=== PATIENT | female | born 1945 | race Caucasian/White ===

== ENCOUNTER → 2021-01-10 10:09 | Outpatient (CLI) | payer MEDICARE, SELFPAY ==
--- NOTE | ~2021-01-10 | MM_ITS ---
EXAMINATION: MM screening [facility] BI w jayda HISTORY: Screening mammogram TECHNIQUE: Craniocaudal and mediolateral oblique 3-D tomosynthesis images were obtained and synthetic 2-D images were generated. CAD analysis was submitted and interpreted. COMPARISON: 03/19/2019, 01/15/2018, 12/17/2016 BREAST PARENCHYMAL COMPOSITION: There are scattered areas of fibroglandular density. FINDINGS: There is chronic, stable focal asymmetry in the upper inner quadrant of the left breast. Th ere is no evidence of suspicious mass, calcification, or architectural distortion to suggest malignan cy in either breast. There has been no suspicious interval change. IMPRESSION: 1. No mammographic evidence of malignancy. 2. Recommend routine screening mammography in one year. BI-RADS Category 2: Benign finding(s). Reviewed, dictated and finalized at location D.
== END ==
PROVIDERS: Visit Provider Obstetrics & Gynecology
DX: Z12.31 Encounter for screening mammogram for malignant neoplasm of breast (principal)
CPT/HCPCS: 77063; 77067

== ENCOUNTER → 2022-11-13 10:10 | Outpatient (CLI) | payer MEDICARE, OTHER, SELFPAY ==
--- NOTE | ~2022-11-13 | MM_ITS ---
EXAMINATION: MM screening glo BI w jayda HISTORY: Screening mammogram TECHNIQUE: Craniocaudal and mediolateral oblique 3-D tomosynthesis images were obtained and synthetic 2-D images were generated. CAD analysis was submitted and interpreted. COMPARISON: 01/10/2021, 03/19/2019, 01/15/2018 bilateral screening mammogram examinations BREAST PARENCHYMAL COMPOSITION: There are scattered areas of fibroglandular density. FINDINGS: There is stable bilateral thyroidal asymmetry, very possibly due to history of bilateral ex cisional biopsies. Scattered bilateral benign calcifications. There is no evidence of suspicious mass , calcification, or architectural distortion to suggest malignancy in either breast. There has been n o suspicious interval change. IMPRESSION: 1. No mammographic evidence of malignancy. 2. Recommend routine screening mammography in one year. BI-RADS Category 2: Benign finding(s). Reviewed, dictated and finalized at location A. TION COORDINATOR
== END ==
PROVIDERS: PCP Nurse Practitioner; Visit Provider Nurse Practitioner
DX: Z12.31 Encounter for screening mammogram for malignant neoplasm of breast (principal)
CPT/HCPCS: 77063; 77067

== ENCOUNTER → 2022-11-13 10:14 | Outpatient (CLI) | payer OTHER, SELFPAY ==
--- NOTE | ~2022-11-13 | DEXA_ITS ---
Bone Density Report Name: TONEY SAHNI Age: 77 Sex: Female Ethnicity: White Date of : 1945 Indication: postmenopausal; screening for osteoporosis; height loss; Referring Provider: Kristen Butcher Study: Bone densitometry was performed. Exam Date: November 13, 2022 Accession number: [id number] Bone Density: Region BMD T-score Z-score Classification AP Spine (L2, L3, L4) 1.122 0.4 2.9 Normal Femoral Neck (Left) 0.764 -0.8 1.3 Normal Total Hip (Left) 0.806 -1.1 0.7 Osteopenia Femoral Neck (Right) 0.743 -1.0 1.1 Normal Total Hip (Right) 0.823 -1.0 0.8 Normal Total Hip Mean 0.815 -1.1 0.8 Osteopenia World Health Organization criteria for BMD impression classify patients as: Normal (T-score at or above -1.0), Osteopenia (T-score between -1.0 and -2.5), or Osteoporosis (T-score at or below -2.5). 10-year Fracture Risk(1): Major Osteoporotic Fracture 8.5% Hip Fracture 1.2% Reported Risk Factors: [place] (), Neck BMD=0.743, BMI=41.5 Input outside FRAX(R) limits. Adjusted to:Qaykin=315 kg (1) FRAX(R) Version 3.08. Fracture probability calculated for an untreated patient. Fracture probability may be lower if the patient has received treatment. Previous Exams: Region Exam Age BMD T-score BMD Change BMD Change Date g/cm2 vs Baseline vs Previous AP Spine(L2, L3, L4) 11/13/2022 77 1.122 0.4 0.008 0.008 10/24/2014 69 1.113 0.3 Total Hip(Left) 11/13/2022 77 0.806 -1.1 -0.084* -0.084* 10/24/2014 69 0.890 -0.4 Total Hip(Right) 11/13/2022 77 0.823 -1.0 -0.066* -0.066* 10/24/2014 69 0.889 -0.4 *Denotes significance at 95% confidence level, LSC for AP Spine = 0.022 g/cm2, LSC for Total Hip = 0.027 g/cm2 Clinical Information Provided by Patient: Has used the following medications: Vitamin D Patient maximum height was 71 Menopause Age: 57 No regular weight bearing exercise Drinks caffeinated beverages Onset of menses at age 13 Number of children 0 Impression: The patient has low bone mass, based on the Left Total Hip T-score. The patient has an estimated ten-year risk of hip fracture of 1.2% and an estimated ten-year risk of major fracture of 8.5%, based on the WHO FRAX algorithm. The BMD for the Total Hip(Left) decreased, changing by -0.084 since the last DXA exam. The BMD for the Total Hip(Right) decreased, changing by -0.066 since the last DXA exam.
== END ==
PROVIDERS: PCP Nurse Practitioner; Visit Provider Nurse Practitioner
DX: Z78.0 Asymptomatic menopausal state (principal); M85.852 Other specified disorders of bone density and structure, left thigh; M85.851 Other specified disorders of bone density and structure, right thigh
CPT/HCPCS: 77080

== ENCOUNTER 2023-03-17 13:20 | Outpatient (CLI) | payer MEDICARE, SELFPAY ==
[2023-03-17 15:57] LABS: Basophils Absolute Auto 0.1 K/mm3 (0.0-0.1); Basophils Percent Auto 0.8 % (0.2-1.2); Eosinophils Absolute Auto 0.3 K/mm3 (0-0.3); Eosinophils Percent Auto 4.3 % (0-4.4); Hematocrit 41.1 % (37.0-47.0); Hemoglobin 13.6 g/dL (12.0-15.0); Immature Granulocyte Absolute 0.03 K/mm3 (0.00-0.031); Immature Granulocyte Percent A 0.4 % (0-0.5); Lymphocytes Absolute Auto 2.91 K/mm3 (0.9-3.2); Lymphocytes Percent Auto 36.9 % (18.3-44.2); Mean Corpuscular HGB Conc 33.1 g/dl (32-36); Mean Corpuscular Hemoglobin 31.9 pg (26-34); Mean Corpuscular Volume 96.3 fl (80-100); Mean Platelet Volume 9.8 fl (7.4-10.4); Monocytes Absolute Auto 0.6 K/mm3 (0.1-0.6); Neutrophils Percent Auto 50.6 % (45.5-73.1); Platelet Count Result 195 k/mm3 (150-375); Red Blood Count 4.27 M/mm3 (4.2-5.4); Red Cell Distribution Width 12.6 % (11.5-14.5); White Blood Count 7.9 K/mm3 (4.5-10.0)
[2023-03-17 18:06] LABS: Hemoglobin A1C 8.4 % (<5.7)
[2023-03-17 19:38] LABS: Vitamin D 25 Hydroxy 84.6 ng/mL
[2023-03-17 20:00] LABS: Alanine Aminotransferase 22 U/L (6-35); Albumin Level 3.8 g/dL (3.5-5.1); Alkaline Phosphatase 96 U/L (38-126); Anion Gap 2 mmol/L (8-16); Aspartate Amino Transferase 34 U/L (14-36); Bilirubin,Total 0.8 mg/dL (0.2-1.3); Blood Urea Nitrogen 16 mg/dL (7-17); Calcium 10.1 mg/dL (8.4-10.2); Carbon Dioxide 31 mmol/L (22-30); Chloride 105 mmol/L (98-107); Cholesterol 180 mg/dL (0-200); Estimated Glomerular Filt Rate > 60; Glucose 177 mg/dL (65-110); HDL Direct 63 mg/dL; Sodium 138 mmol/L (137-145); Triglycerides 143 mg/dL (<150)
[2023-03-17 20:06] LABS: LDL Cholesterol Direct 92 mg/dL
== END 2023-03-17 13:21 | disposition home or self-care (01) ==
LOC: ANHGOSHLAB 13:21
PROVIDERS: PCP Nurse Practitioner; Visit Provider Nurse Practitioner
DX: E11.9 Type 2 diabetes mellitus without complications (principal); E55.9 Vitamin D deficiency, unspecified; E78.5 Hyperlipidemia, unspecified
CPT/HCPCS: 36415; 80053; 80061; 82306; 83036; 85025

== ENCOUNTER 2023-08-05 10:57 | Outpatient (CLI) | payer MEDICARE, SELFPAY ==
[2023-08-05 18:27] LABS: Basophils Absolute Auto 0.1 K/mm3 (0.0-0.1); Basophils Percent Auto 0.6 % (0.2-1.2); Eosinophils Absolute Auto 0.2 K/mm3 (0-0.3); Eosinophils Percent Auto 1.8 % (0-4.4); Hematocrit 41.5 % (37.0-47.0); Immature Granulocyte Absolute 0.03 K/mm3 (0.00-0.031); Immature Granulocyte Percent A 0.4 % (0-0.5); Lymphocytes Absolute Auto 2.77 K/mm3 (0.9-3.2); Mean Corpuscular HGB Conc 31.3 g/dl (32-36); Mean Corpuscular Volume 98.8 fl (80-100); Mean Platelet Volume 10.4 fl (7.4-10.4); Monocytes Absolute Auto 0.6 K/mm3 (0.1-0.6); Monocytes Percent Auto 7.1 % (2.6-8.5); Neutrophils Absolute Auto 4.8 K/mm3 (1.3-6.7); Neutrophils Percent Auto 57.1 % (45.5-73.1); Platelet Count Result 226 k/mm3 (150-375); Red Cell Distribution Width 13.1 % (11.5-14.5); White Blood Count 8.4 K/mm3 (4.5-10.0)
[2023-08-05 18:31] LABS: Alanine Aminotransferase 21 U/L (6-35); Albumin Level 3.7 g/dL (3.5-5.1); Alkaline Phosphatase 97 U/L (38-126); Anion Gap 8 mmol/L (8-16); Aspartate Amino Transferase 51 U/L (14-36); Bilirubin,Total 0.6 mg/dL (0.2-1.3); Blood Urea Nitrogen 14 mg/dL (7-17); Carbon Dioxide 29 mmol/L (22-30); Chloride 104 mmol/L (98-107); Cholesterol 147 mg/dL (0-200); Estimated Glomerular Filt Rate > 60; Glucose 154 mg/dL (65-110); HDL Direct 55 mg/dL; Potassium 4.3 mmol/L (3.4-5.0); Sodium 141 mmol/L (137-145); Triglycerides 124 mg/dL (<150)
[2023-08-05 18:42] LABS: LDL Cholesterol Direct 72 mg/dL
[2023-08-05 19:02] LABS: Digoxin 0.5 ng/mL (0.8-2.0)
[2023-08-05 19:34] LABS: Hemoglobin A1C 7.9 % (<5.7)
[2023-08-05 19:49] LABS: Vitamin D 25 Hydroxy 88.4 ng/mL
== END 2023-08-05 10:58 | disposition home or self-care (01) ==
LOC: ANHGOSHLAB 10:59
PROVIDERS: Clinical Nurse Specialist; PCP Internal Medicine; Visit Provider Nurse Practitioner
DX: Z12.11 Encounter for screening for malignant neoplasm of colon (principal); Z12.12 Encounter for screening for malignant neoplasm of rectum; E11.9 Type 2 diabetes mellitus without complications; I10 Essential (primary) hypertension; E55.9 Vitamin D deficiency, unspecified; E78.5 Hyperlipidemia, unspecified; I48.91 Unspecified atrial fibrillation
CPT/HCPCS: 36415; 80053; 80061; 80162; 82306; 83036; 85025

== ENCOUNTER → 2023-11-13 09:38 | Outpatient (CLI) | payer MEDICARE, SELFPAY ==
--- NOTE | ~2023-11-13 | MM_ITS ---
EXAMINATION: MM screening glo BI w jayda HISTORY: Screening TECHNIQUE: Craniocaudal and mediolateral oblique 3-D tomosynthesis images were obtained and synthetic 2-D images were generated. CAD analysis was submitted and interpreted. COMPARISON: Comparison to multiple prior studies sequentially, with oldest reviewed study dated 01/15. BREAST PARENCHYMAL COMPOSITION: There are scattered areas of fibroglandular density. FINDINGS: Bilateral breast asymmetries are stable. There is no evidence of suspicious mass, calcifica tion, or architectural distortion to suggest malignancy in either breast. There has been no suspiciou s interval change. IMPRESSION: 1. No mammographic evidence of malignancy. 2. Recommend routine screening mammography in one year. BI-RADS Category 1: Negative Reviewed, dictated and finalized at location A. CLER
== END ==
PROVIDERS: PCP Obstetrics & Gynecology; Visit Provider Obstetrics & Gynecology
DX: Z12.31 Encounter for screening mammogram for malignant neoplasm of breast (principal)
CPT/HCPCS: 77063; 77067

== ENCOUNTER 2024-04-05 07:55 | Outpatient (CLI) | payer MEDICARE, SELFPAY ==
[2024-04-05 15:39] LABS: Alanine Aminotransferase 19 U/L (6-35); Alkaline Phosphatase 92 U/L (38-126); Anion Gap 11 mmol/L (4-12); Aspartate Amino Transferase 39 U/L (14-36); Bilirubin,Total 1.4 mg/dL (0.2-1.3); Blood Urea Nitrogen 16 mg/dL (7-17); Carbon Dioxide 27 mmol/L (22-30); Chloride 101 mmol/L (98-107); Estimated Glomerular Filt Rate > 60; Glucose 213 mg/dL (65-110); Potassium 4.2 mmol/L (3.4-5.0); Sodium 139 mmol/L (137-145)
[2024-04-06 08:57] LABS: Hemoglobin A1C 9.9 % (<5.7)
== END 2024-04-05 07:56 | disposition home or self-care (01) ==
LOC: ANHGOSHLAB 07:57
PROVIDERS: PCP Nurse Practitioner; Visit Provider Nurse Practitioner
DX: E11.9 Type 2 diabetes mellitus without complications (principal)
CPT/HCPCS: 36415; 80053; 83036

== ENCOUNTER 2024-08-30 09:36 | Outpatient (CLI) | payer MEDICARE, SELFPAY ==
[2024-08-30 19:42] LABS: Basophils Absolute Auto 0.1 K/mm3 (0.0-0.1); Basophils Percent Auto 0.8 % (0.2-1.2); Eosinophils Absolute Auto 0.2 K/mm3 (0-0.3); Eosinophils Percent Auto 2.4 % (0-4.4); Hematocrit 41.1 % (37.0-47.0); Hemoglobin 13.9 g/dL (12.0-15.0); Immature Granulocyte Absolute 0.02 K/mm3 (0.00-0.031); Immature Granulocyte Percent A 0.3 % (0-0.5); Lymphocytes Absolute Auto 2.11 K/mm3 (0.9-3.2); Lymphocytes Percent Auto 34.4 % (18.3-44.2); Mean Corpuscular HGB Conc 33.8 g/dl (32-36); Mean Corpuscular Hemoglobin 32.6 pg (26-34); Mean Corpuscular Volume 96.5 fl (80-100); Mean Platelet Volume 10.3 fl (7.4-10.4); Monocytes Absolute Auto 0.4 K/mm3 (0.1-0.6); Monocytes Percent Auto 7.2 % (2.6-8.5); Neutrophils Absolute Auto 3.4 K/mm3 (1.3-6.7); Neutrophils Percent Auto 54.9 % (45.5-73.1); Platelet Count Result 177 k/mm3 (150-375); Red Blood Count 4.26 M/mm3 (4.2-5.4); Red Cell Distribution Width 12.8 % (11.5-14.5); White Blood Count 6.1 K/mm3 (4.5-10.0)
[2024-08-30 20:05] LABS: Alanine Aminotransferase 14 U/L (6-35); Albumin Level 3.6 g/dL (3.5-5.1); Alkaline Phosphatase 93 U/L (38-126); Anion Gap 2 mmol/L (4-12); Aspartate Amino Transferase 33 U/L (14-36); Bilirubin,Total 1.1 mg/dL (0.2-1.3); Blood Urea Nitrogen 14 mg/dL (7-17); Calcium 9.9 mg/dL (8.4-10.2); Carbon Dioxide 31 mmol/L (22-30); Chloride 106 mmol/L (98-107); Cholesterol 164 mg/dL (0-200); Estimated Glomerular Filt Rate > 60; Glucose 184 mg/dL (65-110); HDL Direct 63 mg/dL; Potassium 4.4 mmol/L (3.4-5.0); Sodium 139 mmol/L (137-145); Triglycerides 105 mg/dL (<150)
[2024-08-30 20:16] LABS: Hemoglobin A1C 8.1 % (<5.7)
[2024-08-30 20:17] LABS: LDL Cholesterol Direct 74 mg/dL
[2024-08-30 20:42] LABS: Microalbumin Urine Random 39.2 mg/L (0-16.7)
[2024-08-30 20:46] LABS: Digoxin < 0.5 ng/mL (0.8-2.0)
[2024-08-30 20:51] LABS: Creatinine Urine 114.3 mg/dL; MALB Creatinine Ratio 34.3 mg/g (0-30)
== END 2024-08-30 09:37 | disposition home or self-care (01) ==
LOC: ANHGOSHLAB 09:37
PROVIDERS: PCP Nurse Practitioner; Visit Provider Nurse Practitioner
DX: I48.91 Unspecified atrial fibrillation (principal); E55.9 Vitamin D deficiency, unspecified; E78.5 Hyperlipidemia, unspecified; E11.9 Type 2 diabetes mellitus without complications; R78.89 Finding of other specified substances, not normally found in blood
CPT/HCPCS: 36415; 80053; 80061; 80162; 82043; 82306; 83036; 85025

== ENCOUNTER 2025-04-19 09:06 | Outpatient (CLI) | payer MEDICARE, SELFPAY ==
[2025-04-19 13:03] LABS: Anion Gap 5 mmol/L (4-12); Blood Urea Nitrogen 13 mg/dL (7-17); Calcium 10.2 mg/dL (8.4-10.2); Carbon Dioxide 28 mmol/L (22-30); Chloride 102 mmol/L (98-107); Estimated Glomerular Filt Rate > 60; Glucose 230 mg/dL (65-110); Potassium 4.4 mmol/L (3.4-5.0); Sodium 135 mmol/L (137-145)
[2025-04-19 17:14] LABS: Hemoglobin A1C 9.1 % (<5.7)
== END 2025-04-19 09:07 | disposition home or self-care (01) ==
LOC: ANHGOSHLAB 09:07
PROVIDERS: PCP Internal Medicine; Visit Provider Nurse Practitioner
DX: E11.9 Type 2 diabetes mellitus without complications (principal)
CPT/HCPCS: 36415; 80048; 83036

== ENCOUNTER 2025-07-14 01:58 | Day surgery (SDC) | payer MEDICARE, SELFPAY ==
[2025-07-07 11:13] VITALS: BMI 40.4
--- NOTE | 2025-07-07 11:29 | PC.NURSE ---
[facility] has started construction of its new state of the art ER which will open Spring 2026. With this, we anticipate parking may be a challenge for some our surgical patients and families. Parking spaces are limited but are available for all Surgical, obstetrics, and ER patients sharing this lot. If you arrive and find you are having a hard time finding a parking space, please note that we understand the challenges, please drive around the hospital and park near Hospital Entrance 1. When you enter this entrance, you can ask a volunteer to direct or take you back to the surgical waiting area to check in. We appreciate everyone?s understanding of these expected challenges while we build for your future. Report to the Outpatient Waiting Room, entrance under the green pavilion located off [address], at time _0630_ on date _[id number]_. Planned Procedure Time: _0830_.? Time changes happen often and if your time is changed the preop area will call you the afternoon before. - You and your visitor will be asked to self-screen and do not enter if you have any COVID symptoms. Please call surgeon if you need to reschedule. - A mask is optional within the hospital at this time. Patients may have clear liquids (water, carbonated beverages, clear teas, apple juice) until 3 hours prior to surgery with a maximum of 20 ounces. - No food from midnight until time of surgery and no smoking, or chewing tobacco (or any form of nicotine). No chewing gum, candy or mints. Take only the following medications with a SIP of water on the morning of surgery: ____Metoprolol and Digoxin___ DO NOT STOP ANY OF YOUR OTHER PRESCRIPTION MEDICATIONS PRIOR TO SURGERY EXCEPT THE FOLLOWING Hold all vitamins and supplements for 3 days per anesthesiologist. Medications to discontinue per physician Patient told by Yuni Vasquez to hold Eliquis one day before surgery. Patient told to OK this with Dr. Figueredo. Date to take last dose Please no make-up, nail swedish, hairspray, perfume, deodorant, or body powder the day of surgery.? No jewelry (including any body piercings) or valuables the day of surgery, leave them at home.? Please take a shower or bath the night before, or the morning of, surgery with an antibacterial soap.? Wear comfortable, loose fitting clothing.? - Jewelry must be removed prior to entering the operating room.? Rings and piercings that are not removed may be cut off. - The hospital will not accept responsibility for valuables.? - Please leave all valuables, including medications, at home the day of surgery. If you are going home after surgery, a licensed jinrikisha driver must drive you home.? - NO public transportation without another adult if you receive anesthesia. - We recommend that an adult stay with you for 24 hours following discharge. - We also recommend that you do not drive, make important decision, drink alcoholic beverages, or take any drugs that were not prescribed by your health care provider for at least 24 hours after your discharge time. Follow any additional instructions given to you from your surgeon. Telephone instructions given to __Trina__and asked if any additional questions and then verbalized understanding. Patient advised to call surgeon office or pre surgery nurse liaison [phone] if any additional questions.
--- NOTE | 2025-07-13 02:54 | PM.IMHP ---
H&P: HPI History of Present Illness Date/Time: 07/13/25 02:54 79-year-old female presents for evaluation of vaginal spotting and ultrasound which showed thickened endometrium at 7mm. In 2015 underwent hysteroscopy polypectomy had no issues until recently. Has had no heavy bleeding or clotting but has had brownish discharge and some pinkish discharge as well. No pain discomfort. Chief Complaint: Postmenopausal bleeding Review of Systems Review of Systems: All systems reviewed & are unremarkable except as noted in HPI and below PMFSH Past Medical History Medical History Encounter for special screening examination for neoplasm of cervix Screening mammogram, encounter for Hypertension Vitamin D deficiency A-fib Chicken pox GERD (gastroesophageal reflux disease) Hyperlipidemia Mumps Obesity Type 2 diabetes mellitus Surgical History Surgical History H/O oral surgery History of hysteroscopy 10/13/14 hscope d&c/polypectomy--benign History of breast biopsy 1999 & 2001 benign History of cholecystectomy 09/05/09 Family History Family History Sibling Patient's brother is in good health Mother Family history of lung cancer Patient's mother is , Onset Age: 54 Father Family history of malignant neoplasm of esophagus Patient's father is , Onset Age: 78 Heart disease Grandparent Heart disease paternal grandfather Carcinoma of colon maternal grandfather Social History Social History Smoking status: Never smoker Alcohol intake: never Substance use: never Substance use type: does not use Do You Feel Safe in your Home?: Yes Lack of Transportation: No Lack of Food: Never True Current Housing: I Have Housing Concerned About Future Housing: No Difficulty Paying Gas/Electric Bills: No Difficulty Paying for Meds: No Currently Unemployed: No Education: Master's Degree or Higher Difficulty w/ Childcare or Family Care: No Living arrangements: alone Additional living arrangements comments: single Occupation/Education: retired Gender identity (if verbalized by the patient): Female Sexual Orientation (if Verbalized by the Patient): Straight or Heterosexual Spiritual care concerns: No Meds Home Medications and Allergies Home Medications ?Medication ?Instructions ?Recorded ?Confirmed ?Type cholecalciferol (vitamin D3) 125 125 mcg PO DAILY 05/01/20 07/07/25 History mcg (5,000 unit) capsule lancets (Accu-Chek Softclix #100 ea 08/08/20 07/07/25 Rx Lancets) blood sugar diagnostic (Accu-Chek #100 ea 09/08/20 07/07/25 Rx Doreen Plus test strips) apixaban 5 mg tablet (Eliquis) See Rx Instructions .Route 09/02/24 07/07/25 Rx .COMPLEX #180 tabs digoxin 125 mcg (0.125 mg) tablet See Rx Instructions .Route 09/02/24 07/07/25 Rx .COMPLEX #90 tabs losartan 25 mg tablet See Rx Instructions .Route 09/02/24 07/07/25 Rx .COMPLEX #90 tabs metformin 500 mg tablet 1,000 mg (2 x 500 mg) PO BID #360 09/02/24 07/07/25 Rx tabs metoprolol tartrate 25 mg tablet See Rx Instructions .Route 09/02/24 07/07/25 Rx .COMPLEX #180 tabs metoprolol tartrate 50 mg tablet See Rx Instructions .Route 09/02/24 07/07/25 Rx .COMPLEX #180 tabs simvastatin 10 mg tablet 10 mg PO DAILY #90 tabs 09/02/24 07/07/25 Rx Allergies Allergy/AdvReac Type Severity Reaction Status Date / Time Penicillins Allergy Unknown Hives Verified 07/07/25 11:08 Exam Resp: Effort & Inspection: normal respiratory effort Auscultation: clear to auscultation bilaterally Cardio: Rate: regular rate Rhythm: regular rhythm GI: Inspection: normal to inspection Auscultation: normal bowel sounds : External Female Exam: normal external appearance Speculum Exam - Vagina: normal appearance of the vagina and vagina atrophic Speculum Exam - Cervix: normal appearance of the cervix Bimanual exam- vagina & uterus: normal bimanual exam Bimanual Exam- Adnexa, other: normal adnexae Assessment and Plan Assessment and plan (1) Postmenopausal bleeding: Code(s): N95.0 - Postmenopausal bleeding Status: Acute (2) Endometrial thickening on ultrasound: Code(s): R93.89 - Abnormal findings on diagnostic imaging of other specified body structures Status: Acute Plan Proceed with hysteroscopy with curettings
--- OUTSIDE RECORDS SUMMARY | 2025-07-14 02:00 | XMS_ITS ---
Author Organization Unknown ENCOUNTERS Encounter Performer Location Date Diagnosis Diagnosis Status Outpatient [facility] [address] [place] [address] [id number] Outpatient [facility] [address] [place] [address] [id number] MARIA C Outpatient [facility] [address] [place] [address] [id number] MARIA C *Note: Encounters from your own facility or health system may be excluded. Allergies, Adverse Reactions, Alerts Allergen Type Severity Identification Date Penicillins drug allergy 3 [id number] Medications Name Date Quantity Days Supplied [facility] Number
--- NOTE | 2025-07-14 08:33 | WPDHPUPDATE1 ---
History and Physical Update Update Date/Time: 07/14/25 08:33 History and Physical has been reviewed, including an updated exam of the patient. There are NO changes in the patient's condition. Risks, benefits, and alternatives have been discussed and questions answered. Patient agrees to proceed with procedure.
[2025-07-14] MEDS: ACETAMINOPHEN 500 MG TABLET 1000 MG PO (09:00)
[2025-07-14] MEDS: LACTATED RINGERS 1,000 ML 30 ML IV CONT (09:00)
[2025-07-14 09:05] LABS: Hematocrit 41.6 % (37.0-47.0); Hemoglobin 14.2 g/dL (12.0-15.0); Mean Corpuscular HGB Conc 34.1 g/dl (32-36); Mean Corpuscular Hemoglobin 31.7 pg (26-34); Mean Corpuscular Volume 92.9 fl (80-100); Platelet Count Result 207 k/mm3 (150-375); Red Blood Count 4.48 M/mm3 (4.2-5.4); White Blood Count 6.5 K/mm3 (4.5-10.0)
[2025-07-14 09:25] LABS: Anion Gap 7 mmol/L (4-12); Blood Urea Nitrogen 14 mg/dL (7-17); Calcium 10.1 mg/dL (8.4-10.2); Carbon Dioxide 26 mmol/L (22-30); Chloride 104 mmol/L (98-107); Estimated CRCL calculation 82 ml/min; Estimated Glomerular Filt Rate > 60; Glucose 265 mg/dL (65-110); Potassium 4.3 mmol/L (3.4-5.0); Sodium 137 mmol/L (137-145)
[2025-07-14 09:26] VITALS: BP 137/81; PULSE 82; TEMP 36.4; O2SAT 98; BMI 40.6
[2025-07-14 09:29] LABS: Digoxin 0.6 ng/mL (0.8-2.0)
--- NOTE | 2025-07-14 09:52 | P.PNAN_ITS ---
Anes - Initial Pre Proc Eval Procedure: Operation Date: 07/14/25 10:30 Proposed Procedures p Hysteroscopy Dilation and Curettage - Alexandre Figueredo MD Date/Time: 07/14/25 09:52 Surgeon: Alexandre Figueredo MD Pre Op Diagnosis: post menopausal bleeding Patient Data Age: 79 Gender: F Height: 1.78 m Weight: 128.6 kg Last Vital Signs Temp 97.5 F L 07/14/25 09:26 Pulse 82 07/14/25 09:26 BP 137/81 07/14/25 09:26 Pulse Ox 98 07/14/25 09:26 O2 Del Method Room Air 07/14/25 09:26 Allergies Allergy/AdvReac Type Severity Reaction Status Date / Time Penicillins Allergy Unknown Hives Verified 07/07/25 11:08 Home Medications ?Medication ?Instructions ?Recorded ?Confirmed ?Type cholecalciferol (vitamin D3) 125 125 mcg PO DAILY 04/2207/07/25 History mcg (5,000 unit) capsule lancets (Accu-Chek Softclix #100 ea 08/08/20 07/07/25 Rx Lancets) blood sugar diagnostic (Accu-Chek #100 ea 09/08/20 Rx Doreen Plus test strips) apixaban 5 mg tablet (Eliquis) See Rx Instructions .Ro tyrone 09/02/24 07/07/25 Rx .COMPLEX #180 tabs digoxin 125 mcg (0.125 mg) tablet See Rx Instructions .Route 09/02/24 07/14/25 Rx .COMPLEX #90 tabs losartan 25 mg tablet See Rx Instructions .Route 1 11/03/23 07/07/25 Rx .COMPLEX #90 tabs metformin 500 mg tablet 1,000 mg (2 x 500 mg) PO BID #360 09/02/24 07/07/25 Rx tabs metoprolol tartrate 25 mg tablet See Rx Instructions . Route 09/02/24 07/14/25 Rx .COMPLEX #180 tabs metoprolol tartrate 50 mg tablet See Rx Instructions . Route 09/02/24 07/14/25 Rx .COMPLEX #180 tabs simvastatin 10 mg tablet 10 mg PO DAILY #90 tabs 08/2207/07/25 Rx Laboratory Tests 07/14/25 08:56 WBC 6.5 K/mm3 (4.5-10.0) RBC 4.48 M/mm3 (4.2-5.4) Hgb 14.2 g/dL (12.0-15.0) Hct 41.6 % (37.0-47.0) MCV 92.9 fl (80-100) MCH 31.7 pg (26-34) MCHC 34.1 g/dl (32-36) RDW 12.5 % (11.5-14.5) Plt Count 207 k/mm3 (150-375) MPV 9.6 fl (7.4-10.4) Sodium 137 mmol/L (137-145) Potassium 4.3 mmol/L (3.4-5.0) Chloride 104 mmol/L (98-107) Carbon Dioxide 26 mmol/L (22-30) Anion Gap 7 mmol/L (4-12) BUN 14 mg/dL (7-17) Creatinine 0.72 mg/dL (0.7-1.0) Estim Creat Clear Calc 82 ml/min Estimated GFR > 60 (59 - ) Glucose 265 H mg/dL (65-110) Calcium 10.1 mg/dL (8.4-10.2) Digoxin 0.6 L ng/mL (0.8-2.0) Patient hx anesthesia problems: none Family hx anesthesia problems: none Results Review: All pre-operative results and documents have been reviewed as part of the pre- operative evaluation. [facility] Past Medical History Medical History Encounter for special screening examination for neoplasm of cervix Screening mammogram, encounter for Hypertension Vitamin D deficiency A-fib Chicken pox GERD (gastroesophageal reflux disease) Hyperlipidemia Mumps Obesity Type 2 diabetes mellitus Surgical History Surgical History H/O oral surgery History of hysteroscopy 10/13/14 hscope d&c/polypectomy--benign History of breast biopsy 1999 & 2001 benign History of cholecystectomy 09/05/09 Family History Family History Sibling Patient's brother is in good health Mother Family history of lung cancer Patient's mother is , Onset Age: 54 Father Family history of malignant neoplasm of esophagus Patient's father is , Onset Age: 78 Heart disease Grandparent Heart disease paternal grandfather Carcinoma of colon maternal grandfather Social History Social History Smoking status: Never smoker Alcohol intake: never Substance use: never Substance use type: does not use Do You Feel Safe in your Home?: Yes Lack of Transportation: No Lack of Food: Never True Current Housing: I Have Housing Concerned About Future Housing: No Difficulty Paying Gas/Electric Bills: No Difficulty Paying for Meds: No Currently Unemployed: No Education: Master's Degree or Higher Difficulty w/ Childcare or Family Care: No Living arrangements: alone Additional living arrangements comments: single Occupation/Education: retired Gender identity (if verbalized by the patient): Female Sexual Orientation (if Verbalized by the Patient): Straight or Heterosexual Spiritual care concerns: No Anes - Eval Final PreProcedure Day of Procedure 07/14/25 09:52 Patient weight: morbidly obese Heart: regular rate and rhythm Lungs: clear to auscultation Airway: Mallampati scale class III Neurological: alert and oriented Last oral intake: >/= 8 hours ASA classification: III Emergent: no Anesthetic plan: proceed Anesthesia type and monitoring: general GIVS and LMA and standard monitoring Results Review: All pre-operative results and documents have been reviewed as part of the pre- operative evaluation. Informed Consent: The patient's anesthetic plan and its attendant risks and benefits were discussed with the patient/family/POA. Questions were solicited and answers provided to the satisfaction of the patient/family/POA.
[2025-07-14] MEDS: LIDOCAINE 1% LOCAL INJ 10 ML VIAL INFILTRATE (10:15)
--- NOTE | 2025-07-14 10:20 | S_PTH ---
PATIENT: Trina Palmer LOC: [facility] U#:[id number] AGE/SX: 79/F ROOM: RE07/14/[address]: Alexandre Figueredo MD : 1945 BED: DIS: 07/14/2025 SPEC #: [id number] RECD: 07/14/25 11:18 STATUS: JASVIR REQ #: [id number] RASHAAD: 07/14/25 10:[address]: Alexandre Figueredo DEPT: [facility] Surgical RECD BY: Heaven Pollard ENTERED: 07/14/25 11:19 SP TYPE: Surgical OTHR DR: Manuel Doan DO Tissues: A - Endometrial Curettings Procedures: Hematoxylin and Eosin Stain Gross and Microscopic Level 4 P53 MLH1 MSH2 MSH6 PMS2
--- NOTE | 2025-07-14 10:22 | W.PM.PROC2 ---
Procedure Note - Detailed Date of Procedure 07/14/25 Pre-op Diagnosis post menopausal bleeding Post-op Diagnosis Same Procedure Performed Hysteroscopy with curettings Surgeon Alexandre Figueredo MD Anesthesia MAC Findings atrophic endometrium Description of Procedure patient prepped draped usual manner this procedure. Cervix dilated to allow the hysteroscope to be placed. Once this was done atrophic cavity was noted with no abnormalities. Curettings were obtained of the cavity with minimal tissue obtained. Patient was sent to the recovery room in stable condition. Estimated Blood Loss 10 Drains No Packing No Pathology Yes Complications No immediate complications Condition Stable Disposition PACU [facility] Billing Surgery - Charge Forward: Surgery Billing
[2025-07-14 10:30] VITALS: BP 176/81; PULSE 71; RESP 12; O2SAT 100
[2025-07-14 10:55] VITALS: BP 155/62; PULSE 66; RESP 14; O2SAT 98
[2025-07-14 11:25] VITALS: BP 151/83; PULSE 73; RESP 14
== END 2025-07-14 11:40 | disposition home or self-care (01) ==
PROVIDERS: Anesthesiology; PCP Internal Medicine; Visit Provider Obstetrics & Gynecology
PROC: 0U5B8ZZ Destruction of Endometrium, Via Natural or Artificial Opening Endoscopic (ICD-10-PCS; CPT 58563; principal; 2025-07-14 10:30)
DX: C54.1 Malignant neoplasm of endometrium (principal); N95.0 Postmenopausal bleeding; E11.9 Type 2 diabetes mellitus without complications; Z79.899 Other long term (current) drug therapy; E66.01 Morbid (severe) obesity due to excess calories; Z68.41 Body mass index [BMI] 40.0-44.9, adult
CPT/HCPCS: 58558; 36415; 80048; 80162; 82948; 85027; 88305; 88341; 88342; A9270; J2003; J2405; J2704; J3010; J7120

== ENCOUNTER 2025-08-29 09:19 | Outpatient (CLI) | payer MEDICARE, SELFPAY ==
--- NOTE | ~2025-08-29 | MM_ITS ---
EXAMINATION: MM screening glo BI w jayda HISTORY: Screening. TECHNIQUE: Craniocaudal and mediolateral oblique 3-D tomosynthesis images were obtained and synthetic 2-D images were generated. CAD analysis was submitted and interpreted. COMPARISON: 2023, 2022, and 2020 BREAST PARENCHYMAL COMPOSITION: Dense: The breasts are heterogeneously dense FINDINGS: No suspicious masses are seen. There are no suspicious calcifications. No unexplained architectural distortion is seen. There are no skin or nipple abnormalities identified. There is no adenopathy seen on the images submitted. IMPRESSION: No mammographic evidence to suggest malignancy is seen. The patient may return to screening mammography as per ACR guidelines. BI-RADS 1 - Negative. Reviewed, dictated and finalized at location C. SCHOOL LIBRARIAN
== END 2025-08-29 09:20 | disposition home or self-care (01) ==
LOC: MICIMG 09:23
PROVIDERS: PCP Internal Medicine; Visit Provider Obstetrics & Gynecology
DX: Z12.31 Encounter for screening mammogram for malignant neoplasm of breast (principal)
CPT/HCPCS: 77063; 77067

== ENCOUNTER 2025-09-12 08:42 | Outpatient (CLI) | payer MEDICARE, SELFPAY ==
--- NOTE | ~2025-09-12 | NM_ITS ---
EXAMINATION: NM toño stress w perfusion DATE: 09/12/2025 12:02 INDICATION: Unspecified atrial fibrillation TECHNIQUE: Rest images were obtained following intravenous administration of 10.7 mCi Tc99m tetrofosmin (Myoview). The patient was infused intravenously with Lexiscan (Regadenoson). Then, 32.3 mCi Tc99m tetrofosmin (Myoview) was administered intravenously, and stress images were obtained. Data was ilene nstructed into short axis and horizontal and vertical long axis SPECT images. Gated SPECT images were also obtained. COMPARISON: None. FINDINGS: There is no definite reversible or fixed perfusion abnormality to suggest ischemia or infarction. There is normal left ventricular chamber size, wall motion and ejection fraction. Left ventricular ejection fraction measures 69%. IMPRESSION: 1. Normal myocardial perfusion at rest and during stress. 2. Left ventricular ejection fraction measuring 69%. 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
--- NOTE | 2025-09-12 09:17 | EST_ITS ---
Patient Info Name: Trina Palmer Age: 80 years : 1945 Gender: Female Ht: 70 in Wt: 280 lbs BSA: 2.56 m2 HR: 85 bpm BP: 148 / 94 mmHg Exam Date: 09/12/2025 9:17 AM Patient Status: O Admit Date: 09/12/2025 Exam Type: CA stress toño w NM A regadenoson stress test was performed. Staff Referring Physician: Joselin Dent Attending Provider: Joselin Dent Exercise Technologist: Sabrina Allen Exercise Physician: Ron Tirado DO Summary 1. 1. Negative lexiscan stress test for ischemic ST changes by ECG criteria. 2. 2. Baseline hypertension. 3. 3. Nuclear scan to follow and will be reported separately. Please correlate with it. 4. 4. Patient informed of the above results. Protocol: Lexiscan Stress ECG Details Stage: REST Duration (min): 0 min : 24 sec HR (bpm): 81 SBP (mmHg): --- DBP (mmHg): --- Stage: REST Duration (min): 4 min : 22 sec HR (bpm): 88 SBP (mmHg): 148 DBP (mmHg): 94 Stage: STAGE 1 Duration (min): 1 min : 0 sec HR (bpm): 88 SBP (mmHg): 191 DBP (mmHg): 89 Stage: RECOVERY Duration (min): 1 min : 0 sec HR (bpm): 92 SBP (mmHg): 191 DBP (mmHg): 89 Stage: RECOVERY Duration (min): 2 min : 0 sec HR (bpm): 92 SBP (mmHg): 191 DBP (mmHg): 89 Stage: RECOVERY Duration (min): 3 min : 0 sec HR (bpm): 91 SBP (mmHg): 148 DBP (mmHg): 85 Stage: RECOVERY Duration (min): 3 min : 19 sec HR (bpm): 91 SBP (mmHg): 148 DBP (mmHg): 85 Rest HR: 88 bpm Peak HR: 92 bpm Rest Sys BP: 148 mmHg Peak Sys BP: 191 mmHg Max Pred HR: 142 bpm % Max Pred HR: 65 % Target HR: 121 bpm Max RPP: 17,572 bpm*mmHg Termination Reason: Completed protocol Cardiac Symptoms: Shortness of breath Total Time: 1 min : 0 sec Rest Mulligan BP: 94 mmHg Peak Mulligan BP: 89 mmHg Total Dose: 0.4 mg Resting ECG Atrial fibrillation. Stress ECG No ST changes. Arrhythmias No other arrhythmias. Report Signatures
--- OUTSIDE RECORDS SUMMARY | 2025-09-12 09:17 | XMS_ITS | Clinical Summary ---
Author Organization [facility] Address [address] [place] [id number] Care Team Providers Care Latcher Name Role Phone Manule Doan DO Primary Care Provider [phone] Allergies Active Allergy Reactions Criticality Noted Date Comments Penicillin G Hives,Rash Medium 08/17/2025 Medications apixaban (ELIQUIS) 5 mg tabletIndication s:atrial fibrillation Take 1 tablet (5 mg total) by mouth 2 (two) times a day Active metoprolol tartrate (LOPRESSOR) 25 mg immediate release tabletIndication s:Atrial Arrhythmia Take 2 tablets (50 mg total) by mouth 2 (two) times a day Active simvastatin (ZOCOR) 80 mg tablet Take 1 tablet (80 mg total) by mouth nightly Active losartan (COZAAR) 25 mg tabletIndication s:kidney Take 1 tablet (25 mg total) by mouth nightly Active cholecalciferol, vitamin D3, 5,000 unit/mL dropsIndications :Prevention of Vitamin D Deficiency Take 5,000 Int'l Units/1.7m2 by mouth every morning Active Accu-Chek Doreen Plus test strp strip USE TO TEST BLOOD SUGAR TWICE DAILY 5 Active Accu-Chek Softclix Lancets lancets USE TO CHECK BLOOD SUGAR EVERY MORNING FASTING AND 1 TO 2 HOURS AFTER EVENING MEAL 5 Active digoxin (LANOXIN) 125 mcg (0.125 mg) tabletIndication s:atrial fibrillation Take 1 tablet (125 mcg total) by mouth every morning 5 Active metFORMIN (GLUCOPHAGE) 500 mg tabletIndication s:type 2 diabetes mellitus Take 2 tablets (1,000 mg total) by mouth 2 (two) times a day with meals 5 Active metoprolol tartrate (LOPRESSOR) 50 mg immediate release tabletIndication s:Atrial Arrhythmia Take 1 tablet (50 mg total) by mouth 2 (two) times a day 5 Active simvastatin (ZOCOR) 20 mg tablet Take 1 tablet (20 mg total) by mouth nightly 5 Active digoxin (LANOXIN) 50 mcg/mL solution Take 2.5 mL (0.125 mg total) by mouth 09/02/20 25 Discontin ued(Dupli talia order) metFORMIN (FORTAMET) 500 mg 24 hr tablet Take 1 tablet (500 mg total) by mouth daily with breakfast 09/02/20 25 Discontin ued(Dupli talia order) Active Problems Problem Noted Date Diagnosed Date Endometrial cancer 08/17/2025 Encounters Date Type Department Care Team Description 09/02/2025 10:45 AM MYSQL DBA Clinical Support [facility] Medicine Obstetrics and Gynecology [facility] 7th [place] [address] 09/02/2025 9:00 AM MYSQL DBA Pre-Admission Testing [facility] for Preoperative Assessment and Planning [facility] [address] [place] [id number] Preoperative testing (Primary Dx); Endometrial cancer 09/02/2025 6:52 AM MYSQL DBA - 09/02/2025 11:59 PM MYSQL DBA Hospital Encounter [facility] Cardiac Diagnostic Lab [address] [place] [address] 8th [place] [address] Endometrial cancer Discharge Disposition: Discharge to home or self care 09/01/2025 Orders Only [facility] Medicine Pathology Outreach [address] [place] [address] Naima Vieira MD Carcinoma in situ of cervix, 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 Orders Only [facility] Medicine Obstetrics and Gynecology [address] [place] [address] [facility] 13th [place] [address] [place] [address] Naima Vieira MD Carcinoma in situ of cervix, unspecified location (Primary Dx) 08/23/2025 Orders Only [facility] Medicine Obstetrics and Gynecology [address] [facility] 13th [place] [address] [place] [address] Gill Lopez, RN Endometrial cancer (Primary Dx) 08/23/2025 Telephone [facility] [address] [facility] 13th [place] [address] [place] [address] Gill Lopez, PAULETTE 08/23/2025 Orders Only [facility] [address] [facility] 13th [place] [address] [place] [address] Gill Lopez RN 08/23/2025 Telephone [facility] [address] [facility] 13th [place] [address] [place] [address] Naima Vieira MD Surgery 08/17/2025 11:00 AM MYSQL DBA Ancillary Procedure [facility] at the [address] 8th [place] [address] [place] [address] Swelling of right lower extremity; Swelling of left lower extremity 08/17/2025 10:00 AM MYSQL DBA Office Visit [facility] [address] [facility] 13th [place] [address] Naima Vieira MD Endometrial cancer (Primary Dx) 08/17/2025 Documentation [facility] [address] [facility] 13th [place] [address] [place] [address] Noemi Pulido RN 08/17/2025 Orders Only [facility] [address] [facility] 13th [place] [address] [place] [address] Jocelyn Uribe, PAULETTE Swelling of right lower extremity (Primary Dx); Swelling of left lower extremity from Last 3 Months Surgical History Surgery Date Site/Laterality Comments EXCISION / CURRETTAGE OF BON E CYST / BENIGN TUMOR OF PROXIMAL HUMERUS W/ OR W/O BONE GRAFT 09/22/1994 - 09/21/1995 Left benign tumor lft breast EXCISION / CURRETTAGE OF BON E CYST / BENIGN TUMOR OF PROXIMAL HUMERUS W/ OR W/O BONE GRAFT 09/22/1999 - 09/21/2000 Right benign tumor of right breast CHOLECYSTECTOMY UMBILICAL HERNIA REPAIR 09/22/2008 - 09/21/2009 POLYPECTOMY 09/22/2011 - 09/21/2012 uterine wall ORAL SURGERY 09/22/2022 - 09/21/2023 ORAL SURGERY 09/22/2024 - 09/21/2025 DILATION AND CURETTAGE OF UTERUS DILATION AND CURETTAGE, DIAGNOSTIC / THERAPEUTIC 09/22/2024 - 09/21/2025 Medical History Medical History Date Comments Uterine cancer (HCC) STAGE 1 Heart palpitations Afib Diabetes type 2 Motion sickness Family History Medical History Relation Name Comments Non-Hodgkin's Lymphoma Brother Esophageal cancer Father Colon cancer Maternal Grandfather Lung cancer Mother brain tumor Mother No Known Problems Sister Anesthesia problems Neg Hx Relation Name Status Comments Brother Father Maternal Grandfather Mother Sister Social History Tobacco Use Types Packs/Day Years Used Date Smoking Tobacco: Never Passive Smoke Exposure: Never Smokeless Tobacco: Never Tobacco Cessation:Counseling Given: Not Answered Alcohol Use Standard Drinks/Week Comments Never 0 (1 standard drink = 0.6 oz pur e alcohol) AUDIT-C Answer Date Recorded Q1: How often do you have a drink containing alcohol? Never 09/02/2025 Q2: How many drinks containi ng alcohol do you have on a typical day when you are drinking? Patient does not drink Q3: How often do you have si x or more drinks on one occasion? Never 09/02/2025 Personal Safety Answer Date Recorded Have you ever been in or are you currently in a harmful physical or emotional relationship or is someone making you feel afraid or unsafe? Denies 09/02/2025 Comments Unknown Sex and Gender Information Value Date Recorded Sex Assigned at Not on file Legal Sex Female 1:01 AM MYSQL DBA Gender Identity Not on file Sexual Orientation Not on file Last Filed Vital Signs Vital Sign Reading Time Taken Comments Blood Pressure 147/83 09/02/2025 8:46 AM MYSQL DBA Pulse 85 09/02/2025 8:45 AM MYSQL DBA Temperature 36.4 C (97.5 F) 08/17/2025 9:45 AM MYSQL DBA Respiratory Rate 16 08/17/2025 9:45 AM MYSQL DBA Oxygen Saturation 100% 09/02/2025 8:45 AM MYSQL DBA Inhaled Oxygen Concentration - - Weight 127.7 kg (281 lb 8 oz) 08/17/2025 9:45 AM MYSQL DBA Height 177.8 cm (5' 10) 09/02/2025 8:45 AM MYSQL DBA Body Mass Index 40.85 08/17/2025 9:45 AM MYSQL DBA Plan of Treatment Upcoming Encounters Date Type Department Care Team (Latest Contact Info) Description 09/26/2025 11:50 AM MYSQL DBA Hospital Encounter [facility] Operating Room 1 [place] [address] Naima Vieira MD [address] [place] [address] 09/26/2025 11:50 AM MYSQL DBA Anesthesia Event [facility] Operating Room 1 [place] [id number] Whitney Dhillon, FOLDING MACHINE FEEDER [address] [place] [address] 09/26/2025 11:50 AM MYSQL DBA - 09/26/2025 2:55 PM MYSQL DBA Surgery [facility] Operating Room 1 [place] [address] Naima Vieira MD [address] [place] [address] XI HYSTERECTOMY - LAPAROSCOPIC ROBOTIC ASSISTED Scheduled Procedures Name Priority Associated Diagnoses Date/Ti me XI HYSTERECTOMY - LAPAROSCOP IC ROBOTIC ASSISTED Endometrial cancer 09/26/2025 11:50 AM MYSQL DBA XI SALPINGO/OOPHORECTOMY - LAPAROSCOPIC ROBOTIC ASSISTED Endometrial cancer 09/26/2025 11:50 AM MYSQL DBA XI ROBOTIC SENTINEL LYMPH NODE Endometrial cancer 09/26/2025 11:50 AM MYSQL DBA Health Maintenance Due Date Last Done Comments Depression Screening 1945 Hepatitis C Screening 1945 Osteoporosis Screening-Bone Density Scan 1945 DTaP/Tdap/Td Vaccine (1 - Tdap) 1958 Hepatitis B Screening 1965 Pneumococcal vaccine 65+ (1 of 1 - PCV) 1997 Zoster Vaccine (1 of 2) 1997 Well Visit 65+ 2012 Influenza Vaccine (#1) 2025 09/02/2024, 2021 Fall Risk Assessment 09/02/2026 09/02/2025 Goals Goal Patient Goal Type Associated Problems Recent Progress Patient-Stated? Author Autogenera janelle Goal Care Plan Autogenerated Problem No Peña, Whitney Worrell, [facility] Procedures Procedure Name Priority Date/Time Associated Diagnosis Comments EGFR Routine 09/02/2025 10:06 AM MYSQL DBA Endometrial cancer DIFFERENTIAL AUTO Routine 09/02/2025 10: 06 AM MYSQL DBA Endometrial cancer COMPREHENSIVE METABOLIC PANEL Routine 09/02/2025 10:06 AM MYSQL DBA Endometrial cancer PROTIME-INR Routine 09/02/2025 10:06 AM MYSQL DBA Endometrial cancer CBC WITH AUTO DIFFERENTIAL Routine 09/02/2025 10:06 AM MYSQL DBA Endometrial cancer TYPE AND SCREEN 14 DAY Routine 09/02/2025 10:06 AM MYSQL DBA Preoperative testing POCT HEMOGLOBIN A1C Routine 09/02/2025 9 :48 AM MYSQL DBA ECG 12-LEAD Routine 09/02/2025 9:25 AM MYSQL DBA Preoperative testing TRANSTHORACIC ECHO (TTE) COMPLETE W DOPPLER/CF WO CONTRAST Routine 09/02/2025 8:00 AM MYSQL DBA Endometrial cancer SURGICAL PATHOLOGY Routine 09/01/2025 9: 31 AM MYSQL DBA Carcinoma in situ of cervix, unspecified location US VEIN DUPLEX LOWER EXTREMITY BILATERAL COMPLETE Schedule Routine, Read Routine (OP Routine) 08/17/2025 11:30 AM MYSQL DBA Swelling of right lower extremity Swelling of left lower extremity from Last 3 Months Results * TYPE AND SCREEN 14 DAY (09/02/2025 10:06 AM MYSQL DBA) ABO Rh A Negative Gayathri, indirect Negative [facility] Blood 09/02/2025 10:0 6 AM MYSQL DBA 09/02/2025 11:18 AM MYSQL DBA Narrative CLAU [facility] - 09/02/2025 12:43 PM MYSQL DBA Is this test being ordered in advance for a procedure?->Yes Expected date of procedure:->09/26/25 Has the patient been transfused in the past 3 months?->No Has the patient been in the past 3 months?->No us Whitney Dhillon NP LAB BLOOD BANK TEST ORDER GAVIOTA Final Result Performing Organization Address City/[facility]/ZIP Co de Phone Number [facility] Department [place] [address] * eGFR (09/02/2025 10:06 AM MYSQL DBA) eGFR 84 >=60 mL/min/1. 73 m2 Comment: Interpretive Data Reference Interval Normal >/= 90 mL/min/1.73m2 Mildly decreased* 60 - 89 mL/min/1.73m2 Mildly to moderately decreased 45 - 59 mL/min/1.73m2 Moderately to severely decreased 30 - 44 mL/min/1.73m2 Severely decreased 15 - 29 mL/min/1.73m2 Kidney Failure < 15 mL/min/1.73m2 *Relative to young adult level Estimated glomerular filtration rate is determined by the 2020 CKD-EPI equation recommended by the National Kidney Foundation (A Unifying Approach to GFR Estimation: Recommendations of the NKF-ASK Task Force on Reassessing the Inclusion of Race in Diagnosing Kidney Disease, JASN 2020). The CKD-EPI equation should not be used for patients with unstable renal function and has not been validated in children and those over 70. Current interpretive data was last reviewed 2021. Blood 09/02/2025 10:0 6 AM MYSQL DBA 09/02/2025 10:22 AM MYSQL DBA us Naima Vieira MD LAB BLOOD ORDERABLES Fin al Result CLAU NOVAK [facility] Department [place] [address] * Differential, auto (09/02/2025 10:06 AM MYSQL DBA) Neutrophil abs 5.34 1.50 - 6.50 K/cumm Imm gran abs 0.04 0.00 - 0.10 K/cumm [facility] Lymphocyte abs 1.95 0.80 - 3.30 K/cumm [facility] Monocyte abs 0.50 0.20 - 0.80 K/cumm [facility] Eosinophil abs 0.07 0.00 - 0.50 K/cumm [facility] Basophil abs 0.03 0.00 - 0.10 K/cumm [facility] Neutrophil pct 67.3 % [facility] Comment: Interpretive Data Percent cell count reference ranges are not reported, since discordance with absolute values may lead to misinterpretation of CBC data. Current Interpretive Data was last revised on 2017. Imm gran pct 0.5 % [facility] Comment: Interpretive Data Percent cell count reference ranges are not reported, since discordance with absolute values may lead to misinterpretation of CBC data. Current Interpretive Data was last revised on 2017. Lymphocyte pct 24.6 % [facility] Comment: Interpretive Data Percent cell count reference ranges are not reported, since discordance with absolute values may lead to misinterpretation of CBC data. Current Interpretive Data was last revised on 2017. Monocyte pct 6.3 % [facility] Comment: Interpretive Data Percent cell count reference ranges are not reported, since discordance with absolute values may lead to misinterpretation of CBC data. Current Interpretive Data was last revised on 2017. Eosinophil pct 0.9 % [facility] Comment: Interpretive Data Percent cell count reference ranges are not reported, since discordance with absolute values may lead to misinterpretation of CBC data. Current Interpretive Data was last revised on 2017. Basophil pct 0.4 % [facility] Comment: Interpretive Data Percent cell count reference ranges are not reported, since discordance with absolute values may lead to misinterpretation of CBC data. Current Interpretive Data was last revised on 2017. Blood 09/02/2025 10:0 6 AM MYSQL DBA 09/02/2025 10:22 AM MYSQL DBA Naima Vieira MD LAB BLOOD ORDERABLES Fin al Result Performing Organization Address City/[facility] Co de Phone Number [facility] Department [place] [employer] [place] [address] * CBC with auto differential (09/02/2025 10:06 AM MYSQL DBA) WBC 7.93 3.80 - 9.90 K/cumm Hgb 13.6 11.9 - 15.5 g/dL [facility] Hct 40.8 35.6 - 45.5 % [facility] Plt 192 150 - 400 K/cumm [facility] MPV 10.2 9.1 - 12.3 fL [facility] RBC 4.41 3.90 - 5.20 M/cumm [facility] MCV 92.5 81.3 - 96.4 fL [facility] MCH 30.8 27.1 - 33.3 pg [facility] MCHC 33.3 32.3 - 35.7 g/dL [facility] RDW CV 12.2 11.1 - 14.9 % [facility] RDW SD 41.4 35.7 - 48.1 fL [facility] NRBC abs 0.00 0.00 - 0.01 K/cumm [facility] Blood 09/02/2025 10:0 6 AM MYSQL DBA 09/02/2025 10:22 AM MYSQL DBA Naima Vieira MD LAB BLOOD ORDERABLES Fin al Result Performing Organization Address City/[facility]/ZIP Co de Phone Number [facility] [place] [employer] [place] [address] * (ABNORMAL) Protime-INR (09/02/2025 10:06 AM MYSQL DBA) PT 14.6(H) 10.2 - 13.5 sec INR 1.30(H) 0.90 - 1.20 [facility] Comment: Interpretive data Oral anticoagulant therapeutic ranges: Venous thromboembolism prophylaxis or treatment: 2.0-3.0 CARDIOLOGY Standard range: 2.0-3.0 High-intensity range: 2.5-3.5 Refer to indication-specific guidelines for appropriate target ranges for prosthetic heart valve replacement. Current interpretive data was last revised on 2019. Blood 09/02/2025 10:0 6 AM MYSQL DBA 09/02/2025 10:26 AM MYSQL DBA Naima Vieira MD LAB BLOOD ORDERABLES Fin al Result [facility] Department [place] [address] * (ABNORMAL) Comprehensive metabolic panel (09/02/2025 10:06 AM MYSQL DBA) Sodium 141 135 - 145 mmol/L Potassium, pl 4.4 3.3 - 4.9 mmol/L [facility] Chloride 106 97 - 110 mmol/L [facility] CO2 24 22 - 32 mmol/L [facility] Anion gap 11 2 - 15 mmol/L [facility] BUN 12 6 - 25 mg/dL [facility] Creatinine 0.73 0.60 - 1.10 mg/dL [facility] Glucose 310(H) 70 - 199 mg/dL [facility] Comment: Interpretive Data Fasting glucose >/= 126 mg/dl is diagnostic for diabetes. Fasting is defined as no caloric intake for at least 8 hours. Fasting glucose between 100 mg/dl to 125 mg/dl is diagnostic of prediabetes. In a patient with classic symptoms of hyperglycemia or hyperglycemic crisis, a random glucose >/= 200 mg/dl is diagnostic for diabetes. In the absence of unequivocal hyperglycemia, results should be confirmed by repeat testing. The classification and Diagnosis of Diabetes Diabetes Care 202; 46: S19-S40. Current interpretive data was last revised 2022. Calcium 10.0 8.5 - 10.3 mg/dL [facility] Bilirubin, total 0.7 0.1 - 1.2 mg/dL [facility] Protein, pl 6.3(L) 6.5 - 8.5 g/dL [facility] Albumin 3.5 3.5 - 5.0 g/dL [facility] Alk phos 105 40 - 130 Units/L [facility] ALT 21 7 - 45 Units/L [facility] AST 19 10 - 45 Units/L [facility] Blood 09/02/2025 10:0 6 AM MYSQL DBA 09/02/2025 10:22 AM MYSQL DBA Naima Vieira MD LAB BLOOD ORDERABLES Fin al Result Performing Organization Address [facility] de Phone Number [facility] [place] [address] * (ABNORMAL) POCT hemoglobin A1c (09/02/2025 9:48 AM MYSQL DBA) [facility] Hgb A1C, POC 10.1(H) 4.0 - 5.6 % Est Average Gluc POC 243 mg/dL [facility] Comment: The ADA recommends reporting an estimated Average Glucose (eAG) with all Hemoglobin A1c results using the equation derived from a study of 507 normal and diabetic adults. Minority populations were underrepresented and children were not included. (Diabetes Care 31:6768-6246, 2008). The eAG is not equivalent to a fasting glucose. Blood 09/02/2025 9:48 AM MYSQL DBA 09/02/2025 9:48 AM MYSQL DBA Naima Vieira MD POINT OF CARE TEST ORDER GAVIOTA Final Result Performing Organization Address [facility] de Phone Number [facility] [place] [address] * ECG 12 lead (09/02/2025 9:25 AM MYSQL DBA) [facility] Ventricular Rate EKG/Min 79 BPM [facility] QRS-Interval (MSEC) 98 ms [facility] QT-Interval (MSEC) 370 ms [facility] QTc 424 ms [facility] R [place] 7 degrees [facility] T [place] -13 degrees [facility] Diagnosis Atrial fibrillation Incomplete right bundle branch block Minimal voltage criteria for LVH, may be normal variant ( R in aVL ) ST & T wave abnormality, consider anterior ischemia Abnormal ECG No previous ECGs available Confirmed by MARTA MATHEW M.D ([id number]) on 09/02/2025 11:39:12 AM [facility] 09/02/2025 9:25 AM MYSQL DBA 09/02/2025 11:39 AM MYSQL DBA us Whitney Dhillon FOLDING MACHINE FEEDER ECG ORDERABLES Final Res ult [facility] * TRANSTHORACIC ECHO (TTE) COMPLETE W DOPPLER/CF WO CONTRAST (09/02/2025 8:00 AM MYSQL DBA) EF Mod BP 63 % CONS SCIMAGE Anatomical Region Laterality Modality Ultrasound 09/02/2025 7:07 AM MYSQL DBA Narrative 09/02/2025 1:18 PM MYSQL DBA [facility] [place] [address] Transthoracic Echocardiographic Report Patient Name: TRINA PALMER C : 1945 (80y ) Sex: F Study Date: 09/02/2025 07:07:45 AM Ht(Inch): 69 Wt(Lb): 281.09 BSA: 2.39 Cane Flume Watcher: Korina Regan [facility] Location: [facility] Order Provider: NAIMA VIEIRA Heart Rate: 79 BMI: 41.51 BP: 169/84 Ref Provider: NAIMA VIEIRA PROCEDURES: Echocardiographic Report: Transthoracic complete echo with strain imaging, 2D, spectral and tissue Doppler, color flow Doppler, M-mode. INDICATIONS: C54.1 Malignant neoplasm of endometrium. CONCLUSIONS: 1. Normal left ventricular cavity size based on volume index. Normal LV wall thickness. Normal left ventricular systolic function. The Ejection Fraction (Santiago's) is measured at 63 %. Left ventricular diastolic function is indeterminate due to the presence of atrial fibrillation during the study. The average global longitudinal strain is abnormal. 2. Normal right ventricular size. Moderate right ventricular hypokinesis. 3. Mildly dilated left atrium. 4. There is no significant valvular heart disease. 5. Mild aortic root dilation at sinuses of Valsalva. COMPARISONS: No previous study available for comparison. ATTESTATION: I have personally reviewed and interpreted this study without fellow or resident. DISCLAIMER: The study images and the final report will be retained in the patient chart by the Echo Laboratory for the legally required time period. This chart constitutes the legal record of any testing performed. FINDINGS: Left Ventricle: Normal left ventricular cavity size based on volume index. Normal LV wall thickness. Normal left ventricular systolic function. The Ejection Fraction (Santiago's) is measured at 63 %. Left ventricular diastolic function is indeterminate due to the presence of atrial fibrillation during the study. The average global longitudinal strain is abnormal. The LV global strain is: -12.9 %. Right Ventricle: Normal right ventricular size. Moderate right ventricular hypokinesis. Left Atrium: Mildly dilated left atrium. Right Atrium: The right atrium is normal in size. Mitral Valve: Normal mitral valve structure. Trace mitral valve regurgitation. No stenosis present. Aortic Valve: Normal trileaflet aortic valve. No aortic regurgitation. No aortic valve stenosis. Tricuspid Valve: Normal tricuspid valve structure. Mild tricuspid regurgitation. No tricuspid valve stenosis. Pulmonic Valve: Normal pulmonic valve structure. No pulmonic regurgitation. No pulmonic valve stenosis present. Pericardium: Normal pericardium without pericardial effusion. Aorta: Mild aortic root dilation at sinuses of Valsalva. IVC: The IVC was <2.1 cm and collapsibility >50%. (est. RA pressure 0-5 mmHg). The estimated RA pressure is 3 mmHg. PASP: The estimated pulmonary artery systolic pressure is 33.0 mmHg. Rhythm: The rhythm during the study was atrial fibrillation. Normal ventricular response (VR ~75-85 bpm). MEASUREMENTS: 2D/MM Value Range Doppler Value Range LVIDd 2D 4.8 cm [ 3.8 - 5.2 ] AV Peak Albert 1.0 m/s [ 1.0 - 1.7 ] LVIDs 2D 3.4 cm [ 2.2 - 3.5 ] AV Peak PG 4 mmHg IVSd 2D 0.9 cm [ 0.6 - 0.9 ] AV Mean PG 2 mmHg LVPWd 2D 0.9 cm [ 0.6 - 0.9 ] AV VTI 22 cm LV Thickness Ratio 1.0 LVOT Peak Albert 0.8 m/s [ 0.7 - 1.1 ] LV FS 2D 30.03 % [ 27.00 - 45.00 ] LVOT VTI 17 cm RWT 0.38 LVOT Diam 2.0 cm EDV Mod BP 106 ml [ 46 - 106 ] ERA VTI 2.4 cm2 LV EDV Index 44 ml/m2 LVOT/AV VTI 0.77 - Dimensionless index (DVI) ESV Mod BP 39 ml [ 14 - 42 ] MV E Peak Albert 1.04 m/s [ 0.60 - 1.30 ] EF Mod BP 63 % [ 54 - 74 ] MV E/A 4.0 ratio [ 0.8 - 1.5 ] LV GLS -12.9 % [ -25.0 - -18.0 ] MV Decel [place] 496 LA Volume BP 98 ml MV Decel Time 211 msec [ 104 - 258 ] LA Volume Index 41 ml/m2 [ 16 - 34 ] Med E` Albert 8.0 cm/sec [ 8.0 - 25.0 ] RV Base Dimen 2D 4.2 cm [ 2.5 - 4.2 ] Lat E` Albert 10.7 cm/sec [ 10.0 - 25.0 ] RV Mid Dimen 2D 4.3 cm Average E/E` 11 TAPSE 1.6 cm [ 1.7 - 5.0 ] RV S` 6.8 cm/sec RA Volume 49 ml TR Peak Albert 2.7 m/s [ 1.0 - 2.8 ] RA Volume Index 21 ml/m2 TR Peak PG 30 mmHg IVC Diam 1.6 cm RA Pressure 3 mmHg IVC Collapse 70.0 % RVSP 33 mmHg AoR Diam 2D 3.5 cm [ 2.7 - 3.3 ] PV Peak Albert 0.9 m/s [ 0.4 - 0.8 ] Ao Root Index 1.5 cm/m2 [ 1.0 - 2.0 ] PV Peak PG 3 mmHg Electronically Signed By: Bridgette Dumont MD 09/02/2025 1:17:15 PM MYSQL DBA Procedure Note De Bridgette Solis MD - 09/02/2025 [facility] [place] [place] [address] Transthoracic Echocardiographic Report Patient Name: TRINA PALMER C : 1945 (80y ) Sex: F Study Date: 09/02/2025 07:07:45 AM Ht(Inch): 69 Wt(Lb): 281.09 BSA: 2.39 Cane Flume Watcher: Korina Regan RDCS Location: [facility] Order Provider:NAIMA VIEIRA Heart Rate: 79 BMI: 41.51 BP: 169/84 Ref Provider: NAIMA VIEIRA PROCEDURES: Echocardiographic Report: Transthoracic complete echo with strain imaging,2D, spectral and tissue Doppler, color flow Doppler, M-mode. INDICATIONS: C54.1 Malignant neoplasm of endometrium. CONCLUSIONS: 1. Normal left ventricular cavity size based on volume index. Normal LVwall thickness. Normal left ventricular systolic function. The Ejection Fraction(Santiago's) is measured at 63 %. Left ventricular diastolic function is indeterminate due to thepresence of atrial fibrillation during the study. The average global longitudinalstrain is abnormal. 2. Normal right ventricular size. Moderate right ventricularhypokinesis. 3. Mildly dilated left atrium. 4. There is no significant valvular heart disease. 5. Mild aortic root dilation at sinuses of Valsalva. COMPARISONS: No previous study available for comparison. ATTESTATION: I have personally reviewed and interpreted this study without fellow orresident. DISCLAIMER: The study images and the final report will be retained in the patientchart by the Echo Laboratory for the legally required time period. This chart constitutesthe legal record of any testing performed. FINDINGS: Left Ventricle: Normal left ventricular cavity size based on volume index.Normal LV wall thickness. Normal left ventricular systolic function. The EjectionFraction (Santiago's) is measured at 63 %. Left ventricular diastolic function is indeterminatedue to the presence of atrial fibrillation during the study. The average globallongitudinal strain is abnormal. The LV global strain is: -12.9 %. Right Ventricle: Normal right ventricular size. Moderate right ventricularhypokinesis. Left Atrium: Mildly dilated left atrium. Right Atrium: The right atrium is normal in size. Mitral Valve: Normal mitral valve structure. Trace mitral valveregurgitation. No stenosis present. Aortic Valve: Normal trileaflet aortic valve. No aortic regurgitation. Noaortic valve stenosis. Tricuspid Valve: Normal tricuspid valve structure. Mild tricuspidregurgitation. No tricuspid valve stenosis. Pulmonic Valve: Normal pulmonic valve structure. No pulmonicregurgitation. No pulmonic valve stenosis present. Pericardium: Normal pericardium without pericardial effusion. Aorta: Mild aortic root dilation at sinuses of Valsalva. IVC: The IVC was <2.1 cm and collapsibility >50%. (est. RA pressure 0-5mmHg). The estimated RA pressure is 3 mmHg. PASP: The estimated pulmonary artery systolic pressure is 33.0 mmHg. Rhythm: The rhythm during the study was atrial fibrillation. Normalventricular response (VR ~75-85 bpm). MEASUREMENTS: 2D/MM Value Range DopplerValue Range LVIDd 2D 4.8 cm [ 3.8 - 5.2 ] AV Peak Vel1.0 m/s [ 1.0 - 1.7 ] LVIDs 2D 3.4 cm [ 2.2 - 3.5 ] AV Peak PG4 mmHg IVSd 2D 0.9 cm [ 0.6 - 0.9 ] AV Mean PG2 mmHg LVPWd 2D 0.9 cm [ 0.6 - 0.9 ] AV VTI22 cm LV Thickness Ratio 1.0 LVOT Peak Vel0.8 m/s [ 0.7 - 1.1 ] LV FS 2D 30.03 % [ 27.00 - 45.00 ] LVOT VTI17 cm RWT 0.38 LVOT Diam2.0 cm EDV Mod BP 106 ml [ 46 - 106 ] ERA VTI2.4 cm2 LV EDV Index 44 ml/m2 LVOT/AV VTI0.77 - Dimensionless index (DVI) ESV Mod BP 39 ml [ 14 - 42 ] MV E Peak Vel1.04 m/s [ 0.60 - 1.30 ] EF Mod BP 63 % [ 54 - 74 ] MV E/A4.0 ratio [ 0.8 - 1.5 ] LV GLS -12.9 % [ -25.0 - -18.0 ] MV Decel [id number] LA Volume BP 98 ml MV Decel [id number] msec [ 104 - 258 ] LA Volume Index 41 ml/m2 [ 16 - 34 ] Med E` Vel8.0 cm/sec [ 8.0 - 25.0 ] RV Base Dimen 2D 4.2 cm [ 2.5 - 4.2 ] Lat E` Vel10.7 cm/sec [ 10.0 - 25.0 ] RV Mid Dimen 2D 4.3 cm Average E/E`11 TAPSE 1.6 cm [ 1.7 - 5.0 ] RV S`6.8 cm/sec RA Volume 49 ml TR Peak Vel2.7 m/s [ 1.0 - 2.8 ] RA Volume Index 21 ml/m2 TR Peak PG30 mmHg IVC Diam 1.6 cm RA Pressure3 mmHg IVC Collapse 70.0 % RVSP33 mmHg AoR Diam 2D 3.5 cm [ 2.7 - 3.3 ] PV Peak Vel0.9 m/s [ 0.4 - 0.8 ] Ao Root Index 1.5 cm/m2 [ 1.0 - 2.0 ] PV Peak PG3 mmHg Electronically Signed By: Bridgette Dumont MD 09/02/2025 1:17:15 PM MYSQL DBA Naima Vieira MD CV ECHO PROCEDURES Final Result * Surgical pathology (09/01/2025 9:31 AM MYSQL DBA) Tissue (Miscellaneous) 09/01/2025 9:31 AM MYSQL DBA 09/01/2025 9:31 AM MYSQL DBA Narrative [facility] - 09/07/2025 3:32 PM MYSQL DBA EPIC results best viewed via link to PDF [facility] Pathology Consult Service [address], [address], [place] [address] Note to Patients: This report may contain a detailed description of human tissue sent by a health care provider to the laboratory for pathologic evaluation. The content of this report is essential for diagnosis and may provide important critical findings. This information may be unfamiliar to patients to review without a medical professional present. It is advised that the patient review this report in the presence of a health care provider who can answer questions and explain the details. SURGICAL PATHOLOGY REPORT * Consult Report * [facility] is providing an additional review of previously collected tissue. FINAL Patient Name: TRINA PALMER Address: [place] [address] Gender: F : 1945 (Age: 80) Hospital #: [id number] Patient Type: WU Location: UNKNOWN Taken: 09/01/2025 Received: 09/01/2025 Accessioned: 09/05/2025 Reported: 09/07/2025 Physician(s): Naima Vieira M.D. Pathology [facility] Department of Pathology [address] [place] [address] P: [phone] F: [phone] Diagnosis: Consult material received from [place], [place] (OSC: [id number]; 07/14/2025). Uterus, endometrium, curettage - Adenocarcinoma, favor endometrioid with extensive squamous differentiation - See comment giyi/09/07/2025 10:07 By this signature, I attest that the above diagnosis is based upon my personal examination of the slides(and/or other material indicated in the diagnosis). Camryn Howard MD PhD Report Electronically Reviewed and Signed Out By Camryn Howard MD PhD 09/07/2025 15:32:39 Microscopic Description and Comment: Immunostains were performed by the referring institution and available for review. MMR Proteins (MLH1, PMS2, MSH2, MSH6) are intact and p53 is wild-type in the tumor cells. Per report, and not available for review, the tumor cells are positive for vimentin, ER, mCEA, and p16 (mostly block-like but some areas with mosaic pattern staining). 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 There is extensive squamous differentiation that makes FIGO grading difficult, but the tumor appears to be FIGO grade 1 in this material. Naila Dong M.D. History: The patient is a 80-year-old woman with history of carcinoma in situ of cervix, unspecified location. Materials Received: Received for review are seven slides labeled [id number], accompanied by a corresponding pathology report. The material originates from [place], [place]. Selected slide(s) may be digitally scanned for our files, and all materials are returned to the referring institution, along with a copy of our final report. Any testing required for diagnostic purposes was performed in the Department of Pathology and Immunology at [facility], [address] [place] [id number] CLIA # [id number] The performance characteristics of the testing cited in this report (if any) were determined by the [facility] Department of Pathology and Immunology [facility], as part of an ongoing quality control systems manager program and in compliance with federally mandated regulations drawn from the Clinical Laboratory Improvement Act of 1988 (CLIA '88). Some of these tests rely on the use of analyte specific reagents (ASR) and are subject to specific labeling requirements by the US Food and Drug Administration. Such diagnostic tests may only be performed in a facility that is certified by the Department of Health and Human Services as a high complexity laboratory under CLIA '88. The FDA has determined that such clearance or approval is not necessary. ASRs should not be regarded as investigational or for research. ASRs were developed and the performance characteristics determined by the [facility], [facility] Department of Pathology and Immunology. It has not been cleared or approved by the U.S. Food and Drug Administration. Any test designated as LDT was developed and its performance characteristics determined by [facility]. It has not been cleared or approved by the FDA. This test is used for clinical purposes and should not be regarded as investigational or for research. Report images and/or scanned reports, if included, only viewable in PDF version of report. us Naima Vieira MD LAB PATHOLOGY ORDERABLES Final Result [facility] [address] [id number] * US Vein Duplex Lower Extremity Bilateral Complete (08/17/2025 11:30 AM MYSQL DBA) Anatomical Region Laterality Modality Vascular Bilateral Ultrasound 08/17/2025 11:0 8 AM MYSQL DBA Narrative 08/17/2025 4:59 PM MYSQL DBA [facility] - Department of Vascular Surgery, Vascular Laboratory [address] [place] [address] Lower Extremity Venous Ultrasound Report Patient Name: TRINA PALMER : 1945 (80y ) Study Date: 08/17/2025 11:08:33 AM Sex: F Tech: Location: [facility] Ref Provider: NAIMA VIEIRA Quality: Adequate Order Provider: NAIMA VIEIRA PROCEDURES: Vascular Report: Venous Duplex imaging was performed bilaterally in the lower extremities. The common femoral, femoral, popliteal, posterior tibial, peroneal veins were evaluated for patency, spontaneity and phasicity with Doppler, compression and augmentation maneuvers. Great saphenous vein proximal at the junction was evaluated with compression maneuvers. INDICATIONS: Evaluate for DVT; bilateral lower extremity swelling, evaluate for DVT Dx: Swelling of right lower extremity [M79.89 (ICD-10-CM)]; Swelling of left lower extremity [M79.89 (ICD-10-CM)], M79.89 Other specified soft tissue disorders, and M79.89 Other specified soft tissue disorders. FINDINGS: Performing Cane Flume Watcher: Marla Guthrie RVT, EDWIN. Bilateral: Venous Doppler signals in the bilateral lower extremity are within normal limits for spontaneity and phasicity and respond normally to augmentation maneuvers. No evidence of deep vein thrombus by duplex, proximal to the calf. Comments: Incidental finding: large hypoechoic avascular structure located in the right popliteal fossa, measures 9.0 x 4.3 x 5.6cm. Hypoechoic avascular structure noted in the left popliteal fossa, measures 5.3 x 3 x 2.1cm. CONCLUSIONS: 1. There is no evidence of acute deep vein thrombosis in the lower extremities bilaterally. Noninvasive venous studies cannot rule out isolated calf vein obstruction. HISTORY: Patient reports L>R leg swelling, especially of calf/ankle. Also reports history of benign tumor ? of posterior right knee. Cancer. PREVIOUS STUDIES: No previous studies for comparison. DISCLAIMER: The study images and the final report will be retained in the patient chart by the Vascular Laboratory for the legally required time period. This chart constitutes the legal record of any testing performed. ATTESTATION: I have reviewed and interpreted the pertinent images and measurements of this study. I attest to the conclusions in the final report that is provided above. Electronically Signed By: Zeus Aguiar MD FACS 08/17/2025 4:12:33 PM MYSQL DBA Procedure Note Zeus Aguiar MD - 08/17/2025 [facility] - Department of Vascular Surgery,Vascular Laboratory [address] [place] [address] Lower Extremity Venous Ultrasound Report Patient Name: TRINA PALMER : 1945 (80y ) Study Date: 08/17/2025 11:08:33 AM Sex: F Tech: TH Location: [facility] Ref Provider: NAIMA VIEIRA Quality: Adequate Order Provider: NAIMA VIEIRA PROCEDURES: Vascular Report: Venous Duplex imaging was performed bilaterally in the lower extremities.The common femoral, femoral, popliteal, posterior tibial, peroneal veins wereevaluated for patency, spontaneity and phasicity with Doppler, compression and augmentationmaneuvers. Great saphenous vein proximal at the junction was evaluated with compressionmaneuvers. INDICATIONS: Evaluate for DVT; bilateral lower extremity swelling, evaluate for DVT Dx: Swelling of right lower extremity [M79.89 (ICD-10-CM)]; Swelling ofleft lower extremity [M79.89 (ICD-10-CM)], M79.89 Other specified soft tissuedisorders, and M79.89 Other specified soft tissue disorders. FINDINGS: Performing Cane Flume Watcher: Marla Guthrie RVT, EDWIN. Bilateral: Venous Doppler signals in the bilateral lower extremity are within normallimits for spontaneity and phasicity and respond normally to augmentation maneuvers.No evidence of deep vein thrombus by duplex, proximal to the calf. Comments: Incidental finding: large hypoechoic avascular structure located in theright popliteal fossa, measures 9.0 x 4.3 x 5.6cm. Hypoechoic avascular structure noted in the left popliteal fossa, measures5.3 x 3 x 2.1cm. CONCLUSIONS: 1. There is no evidence of acute deep vein thrombosis in the lowerextremities bilaterally. Noninvasive venous studies cannot rule out isolated calf veinobstruction. HISTORY: Patient reports L>R leg swelling, especially of calf/ankle. Also reportshistory of benign tumor ? of posterior right knee. Cancer. PREVIOUS STUDIES: No previous studies for comparison. DISCLAIMER: The study images and the final report will be retained in the patientchart by the Vascular Laboratory for the legally required time period. This chartconstitutes the legal record of any testing performed. ATTESTATION: I have reviewed and interpreted the pertinent images and measurements ofthis study. I attest to the conclusions in the final report that is provided above. Electronically Signed By: Zeus Aguiar MD [facility] 08/17/2025 4:12:33 PM MYSQL DBA Naima Vieira MD IM US PROCEDURES Final Result from Last 3 Months Additional Health Concerns Active Problems Noted Date Diagnosed Date Autogenerated Problem 08/23/[address] [place] [address] MEDICARE [employer] MEDICARE Care Teams Latcher Relationship Specialty Start Date End Date Manuel Doan DO [address] [facility] [place] [address] PCP - General Internal Medicine 08/17/25
--- OUTSIDE RECORDS SUMMARY | 2025-09-12 09:17 | XMS_ITS | Encounter Summary ---
Author Organization [facility] Address [address] [place] [address] Care Team Providers Care Director Information Security Name Role Phone Unavailable Primary Care Provider Unavailabl e Encounter Details Date Type Department Care Team (Late st Contact Info) Description 07/21/2025 Lab Requisition [facility] [address] [place] [address] Jessica Weeks MD [address] [place] [address] Social History Tobacco Use Types Packs/Day Years Used Date Smoking Tobacco: Never Assessed Comments Unknown Sex and Gender Information Value Date Recorded Sex Assigned at Not on file Legal Sex Female 1:43 PM CDT Gender Identity Not on file Sexual Orientation Not on file documented as of this encounter Plan of Treatment Not on file documented as of this encounter Procedures Procedure Name Priority Date/Time Associated Diagnosis Comments SLIDE PREP HISTOLOGY Routine 07/14/2025 10:20 AM CDT documented in this encounter Results * SLIDE PREP HISTOLOGY (07/14/2025 10:20 AM CDT) Client Specimen ID # [id number] 06/24 12:15 PM CDT [facility] Number of Slides Received 6 12:15 PM CDT [facility] Comment MMR panel 12:15 PM CDT [facility] Slide Prep Complete Testing is technical only and does not require an interpretation of results. 12:15 PM CDT [facility] at 1215 CDT Comment:All histochemical an d/or immunohistochemical results are interpreted with controls that demonstrate appropriate staining reactions before reporting results. Note on use of immunocytochemistry reagents: This test was developed and its performance characteristic determined by [facility], Department of Laboratory Medicine. It has not been cleared or approved by the U.S. Food and Drug Administration (FDA). The FDA has determined that such clearance or approval is not necessary. The test is used for clinical purpose. It should not be regarded as investigational or for research. This laboratory is certified to perform high complexity testing. The performance characteristics of the IHC/MOHAN assays have been validated on formalin-fixed paraffin embedded tissues only. The assays have not been validated on decalcified tissues. Results should be interpreted with caution. Pathology/Cytolo gy OPEN BIOPSY OF ENDOMETRIUM / Unknown 07/14/2025 10:20 AM CDT 07/21/2025 12:15 PM CDT Jessica Weeks MD LAB - PATHOLOGY/CYTOLOGY [facility] Final Result [facility] [address] [place] [address] documented in this encounter Visit Diagnoses Not on filedocumented in this encounter
--- OUTSIDE RECORDS SUMMARY | 2025-09-12 09:17 | XMS_ITS | Clinical Summary ---
Author Organization [facility] Address [address] [place] [address] Care Team Providers Care Cisco Administrator Name Role Phone Unavailable Primary Care Provider Unavailabl e Source Comments [facility],non-owned Affiliates and Associated Physician Practices is amultiple site organization consisting of ambulatory clinics and hospital sitesin [place], [place], [place] and [place]. This disclosure is being madepursuant to the Care Everywhere program and may not contain all information available regarding this patient. Last updated 18.[facility] Encounters Date Type Department Care Team Description 07/21/2025 Lab Requisition [facility] [address] [place] [address] Jessica Weeks MD 07/15/2025 Lab Requisition [facility] - Pathology Lab [address] [place] [id number] Dave Prieto MD Illness, unspecified from Last 3 Months Social History Tobacco Use Types Packs/Day Years Used Date Smoking Tobacco: Never Assessed Comments Unknown Sex and Gender Information Value Date Recorded Sex Assigned at Not on file Legal Sex Female 1:43 PM CDT Gender Identity Not on file Sexual Orientation Not on file Plan of Treatment Health Maintenance Due Date Last Done Comments BONE DENSITY TESTING 1945 HEPATITIS C SCREENING 08/10/1965 DTAP/TDAP/TD VACCINES (1 - Tdap) 1966 PNEUMOCOCCAL VACCINE 50+ (1 of 1 - PCV) 1997 ZOSTER VACCINE (1 of 2) 1997 Respiratory Syncytial Virus (RSV) Vaccine Pt: or over 60 yrs (1 - 1-dose 75+ series) 2022 DEPRESSION SCREENING 09/22/2024 COVID-19 VACCINE (1 - 2024-2 6 season) 2025 INFLUENZA VACCINE (#1) 2025 HEPATITIS B VACCINE Aged Out No longe r eligible based on patient's age to complete this topic HIB VACCINE Aged Out No longer eligi ble based on patient's age to complete this topic HPV VACCINE Aged Out No longer eligi ble based on patient's age to complete this topic MENINGOCOCCAL (Group B) VACC INE SHARED DECISION-MAKING Aged Out No longer eligibl e based on patient's age to complete this topic MENINGOCOCCAL GROUPS A/C/Y/W VACCINE Aged Out No longer eligible b ased on patient's age to complete this topic Procedures Procedure Name Priority Date/Time Associated Diagnosis Comments SLIDE PREP HISTOLOGY Routine 07/14/2025 10:20 AM CDT PATHOLOGY TISSUE Routine 07/14/2025 10:2 0 AM CDT Illness, unspecified from Last 3 Months Results * PATHOLOGY TISSUE (07/14/2025 10:20 AM CDT) Case Report Surgical Pathology Report Case: [id number] Authorizing Provider: Dave Prieto Collected: 07/14/2025 10:20 AM MD Kingsley Ordering Location: [facility] - Received: 07/15/2025 02:04 PM Pathology Lab Pathologist: Jessica Weeks MD Specimen: Endometrium Curettings 07/21/2025 2:27 PM CDT [facility] Final Diagnosis DE PARESH Case for Primary Diagnosis, from [facility], [place], [place] (OSC [id number], 07/14/25) Uterus, endometrium, curettage - Adenocarcinoma, favor endometrial origin, fragmented (see comment) 07/21/2025 2:27 PM CDT [facility] at 1427 CDT Microscopic Description and Comment Microscopic examination substantiates the above diagnosis. Received for review from [address], [place] [address] are two H&E stained slides labeled Trina Palmer and [id number], along with the corresponding FFPE block labeled [id number] A 001 and pathology draft report with the gross description. Histologic sections show a highly fragmented sampling of squamous and glandular tissue, with areas of papillary and microglandular hyperplasia-like architecture. Fragments of background benign squamous epithelium also are present. Immunostains (controls adequate) were performed at [facility] to further evaluate the tumor cells, which are reactive for vimentin, ER, mCEA (predominantly luminal) and p16 (mostly block-like but some areas with mosaic pattern staining). p53 staining shows wild-type pattern reactivity. The morphologic and immunophenotypic features support a diagnosis of adenocarcinoma, which is favored to be of endometrioid type. Grading is limited by the extent of tissue fragmentation. Mismatch repair (MMR) enzyme immunohistochemical staining results: MLH1: Intact PMS2: Intact MSH2: Intact MSH6: Intact Panel interpretation: Proficient (pMMR) Immunohistochemical stains (IHC; single antibody stain procedures, controls adequate; [employer] MMR RdDx Panel) have been performed at [facility], for the DNA mismatch repair (MMR) enzymes MLH1 (M1), MSH2 ([id number]), MSH6 (SP93), and PMS2 (A16-4). These show retained nuclear expression in the tumor cells equivalent to that seen in adjacent normal tissue, a staining pattern that is usually not associated with a defect in mismatch repair function. Normal expression of all four proteins suggests this particular cancer is unlikely to be due to a hereditary germline mutation in the genes known to be associated with Beauchamp Syndrome. Clinical correlation is required. IHC is a reliable measure of DNA mismatch repair status but is neither completely sensitive nor specific and has limitations. The interpretation of this case is performed by [facility] at [facility], [address] [place] [address] , [place] [address]. 07/21/2025 2:27 PM T [facility] Clinical History The patient is a 79-year-old woman with no provided medical history. Procedure: endometrial curettage. 07/21/2025 2:27 PM CDT [facility] Materials Received Received are 2 slide(s) and 1 block(s) labeled [id number] along with a copy of the outside pathology report. [place] [address]. All original materials are returned to the referring institution, along with a copy of our final report. 07/21/2025 2:27 PM CDT [facility] Pathologist Location at [facility] 07/21/2025 2:27 PM CDT [facility] Disclaimer The performance characteristics of all immunohistochemical and indirect immunofluorescence stains (if any) cited in this report were determined by the Histopathology Laboratory of [facility]. Some of these tests were developed by our own laboratory and have not been cleared or approved by the US Food and Drug Administration. The FDA does not require this test to go through premarket FDA review. These tests are used for clinical purposes. They should not be regarded as investigational or for research. This laboratory is certified under the Clinical Laboratory Improvement Amendments (CLIA) as qualified to perform high complexity clinical laboratory testing. This case has been personally reviewed and interpreted by the attending (teaching) pathologist. 07/21/2025 2:27 PM CDT [facility] Embedded Images 07/21/2025 2:27 PM CDT [facility] Pathology/Cytolo gy SPECIMEN FROM ENDOMETRIUM OBTAINED BY CURETTAGE / Unknown 07/14/2025 10:20 AM CDT 07/15/2025 2:04 PM CDT Dave Prieto MD LAB - PATHOLOGY/CYT OLOGY ORDERABLES Final Result Performing Organization Address City/State/[facility] Co de Phone Number [facility] [address] [phone] * SLIDE PREP HISTOLOGY (07/14/2025 10:20 AM CDT) Client Specimen ID # [id number] 06/24 12:15 PM CDT [facility] Number of Slides Received 6 12:15 PM CDT [facility] Comment MMR panel 12:15 PM CDT [facility] Slide Prep Complete Testing is technical only and does not require an interpretation of results. 12:15 PM CDT [facility] at 1215 CDT Comment:All histochemical an d/or immunohistochemical results are interpreted with controls that demonstrate appropriate staining reactions before reporting results. Note on use of immunocytochemistry reagents: This test was developed and its performance characteristic determined by [facility], Department of Laboratory Medicine. It has not [...] 10:20 AM CDT 07/21/2025 12:15 PM CDT us Jessica Weeks MD LAB - PATHOLOGY/CYTOLOGY [place]ARRELL [place]ING[place] Final Result Performing Organization Address City/State/[facility] Co de Phone Number [facility] [address] [place] [address] from Last 3 Months Insurance [facility]
--- OUTSIDE RECORDS SUMMARY | 2025-09-12 09:17 | XMS_ITS | Encounter Summary ---
Author Organization [facility] Address [address] [address] Care Team Providers Care Custom Furrier Name Role Phone Unavailable Primary Care Provider Unavailabl e Encounter Details Date Type Department Care Team (Late st Contact Info) Description 07/15/2025 Lab Requisition [facility] - Pathology Lab [address] [place] [id number] Dave Prieto MD [address] [place] [address] Illness, unspecified Social History Tobacco Use Types Packs/Day Years [...] Procedure Name Priority Date/Time Associated Diagnosis Comments PATHOLOGY TISSUE Routine 07/14/2025 10:2 0 AM CDT Illness, unspecified documented in this encounter Results * PATHOLOGY TISSUE (07/14/2025 10:20 AM CDT) Case Report Surgical Pathology Report Case: [id number] Authorizing Provider: Dave Prieto Collected: 07/14/2025 10:20 AM MD Kingsley Ordering Location: [facility] - Received: 07/15/2025 02:04 PM Pathology Lab Pathologist: Jessica Weeks MD Specimen: Endometrium Curettings 07/21/2025 2:27 PM CDT [facility] Final Diagnosis DE PARESH Case for Primary Diagnosis, from [place] [id number], 07/14/25) Uterus, endometrium, curettage - Adenocarcinoma, favor endometrial origin, fragmented (see comment) 07/21/2025 2:27 PM CDT [facility] at 1427 CDT Microscopic Description and Comment Microscopic examination substantiates the above diagnosis. Received for review from [address] [facility], [place] [address] are two H&E stained slides labeled Trina Palmer and [id number], along with the corresponding FFPE block labeled [id number] A 001 and pathology draft report with the gross description. Histologic sections show a highly fragmented sampling of squamous and glandular tissue, with areas of papillary and microglandular hyperplasia-like architecture. Fragments of background benign squamous epithelium also are present. Immunostains (controls adequate) were performed at [facility] to further evaluate the tumor cells, [...] (IHC; single antibody stain procedures, controls adequate; [place] MMR RdDx Panel) have been performed at [facility], for the DNA mismatch repair (MMR) enzymes MLH1 (M1), MSH2 ([id number]), MSH6 (SP93), and PMS2 (A16-4). These show [...] case is performed by [facility] at [facility], [address] [place] [address]. 07/21/2025 2:27 PM CDT [facility] Clinical History The patient is a 79-year-old woman with no provided medical history. Procedure: endometrial curettage. 07/21/2025 2:27 PM T [facility] Materials Received Received are 2 slide(s) and 1 block(s) labeled [id number] along with a copy of the outside pathology report. [place] [address]. All original materials are returned to the referring institution, along with a copy of our final report. 07/21/2025 2:27 PM CDT [facility] Pathologist Location at [facility] 07/21/2025 2:27 PM CDT [facility] Disclaimer The performance characteristics of all immunohistochemical and indirect immunofluorescence stains (if any) cited in this report were determined by the Histopathology Laboratory of [facility]. Some of these tests were developed by [...] attending (teaching) pathologist. 07/21/2025 2:27 PM CDT [facility] Embedded Images 07/21/2025 2:27 PM CDT [facility] Pathology/Cytolo gy SPECIMEN FROM ENDOMETRIUM OBTAINED BY CURETTAGE / Unknown 07/14/2025 10:20 AM CDT 07/15/2025 2:04 PM CDT Dave Prieto MD LAB - PATHOLOGY/CYT OLOGY ORDERABLES Final Result [facility] [address] [facility] [place] [address], [facility] [phone] documented in this encounter Visit Diagnoses Diagnosis Illness, unspecified documented in this encounter
== END 2025-09-12 08:43 | disposition home or self-care (01) ==
PROVIDERS: PCP Internal Medicine
DX: I48.91 Unspecified atrial fibrillation (principal); I10 Essential (primary) hypertension
CPT/HCPCS: 78452; 93017; A9502; J2785